=== PATIENT | male | born 1990 | race African-American/Black ===

== ENCOUNTER 2022-05-03 01:22 | Emergency (ER) | payer OTHER ==
[~2022-05-03] VITALS: Ht 139.7 cm; Wt 84.8 kg
[2022-05-03] MEDS ORDERED: PRED20 PO (04:18)
[2022-05-03] MEDS ORDERED: BENZ100A PO (04:18)
[2022-05-03] MEDS ORDERED: ALBU90OI INH (04:18)
== END 2022-05-03 04:52 | disposition home or self-care (01) ==
LOC: ER 01:22
DX: J20.9 Acute bronchitis, unspecified (principal); J06.9 Acute upper respiratory infection, unspecified
CPT/HCPCS: 71045

== ENCOUNTER 2022-11-28 07:01 | Emergency (ER) | payer OTHER ==
[~2022-11-28] VITALS: Ht 160 cm; Wt 88.5 kg
[~2022-11-28 07:01] MED LIST: ALBU90OI INH; BENZ100A PO; PRED20 PO
[2022-11-28 09:16] LABS: BASOPHILS ABSOLUTE AUTO 0.04 K/mm3 (0.00-0.23); BASOPHILS PERCENT AUTO 1 % (0-2); EOSINOPHILS PERCENT AUTO 2 % (0-6); Hematocrit 47.6 % (37.0-53.0); Hemoglobin 15.8 g/dL (13.5-17.5); IMMATURE GRAN ABSOLUTE AUTO 0.01 K/mm3 (0.00-0.10); IMMATURE GRAN PERCENT AUTO 0 % (0-1); LYMPHOCYTES ABSOLUTE AUTO 1.59 K/mm3 (0.84-5.20); LYMPHOCYTES PERCENT AUTO 32 % (21-46); MONOCYTES ABSOLUTE AUTO 0.31 K/mm3 (0.16-1.47); MONOCYTES PERCENT AUTO 6 % (4-13); Mean Corpuscular HGB 28.6 pg (26.0-34.0); Mean Corpuscular HGB Conc 33.2 g/dL (31.5-36.5); Mean Corpuscular Volume 86 fL (80-100); Mean Platelet Volume 10.9 fL (9.1-12.4); NEUTROPHILS ABSOLUTE AUTO 2.87 K/mm3 (1.96-9.15); NEUTROPHILS PERCENT AUTO 58 % (41-73); Platelet Count 214 K/mm3 (150-400); RDW Coefficient Variation 12.9 % (11.7-14.2); RDW Standard Deviation 40.8 fL (35.1-46.3); Red Blood Cell Count 5.53 M/mm3 (4.30-5.90); White Blood Cell Count 4.92 K/mm3 (4.00-11.30)
[2022-11-28 10:19] LABS: Bun/Creatinine Ratio 15.5 (12.0-20.0); Creatinine, Blood 0.84 mg/dL (0.60-1.20); Potassium, Blood 4.2 mmol/L (3.5-5.5)
[2022-11-28 10:30] VITALS: BP 129/75
== END 2022-11-28 10:41 | disposition home or self-care (01) ==
LOC: ER 07:01
PROVIDERS: Emergency Medicine
DX: R07.89 Other chest pain (principal)
CPT/HCPCS: 71045; 80048; 84484; 85025; 93005; 93010; 99285-25

== ENCOUNTER 2024-04-25 20:44 | Emergency (ER) | payer OTHER ==
[~2024-04-25] VITALS: Ht 160 cm; Wt 90.7 kg
[2024-04-25 20:52] VITALS: BP 158/95
[2024-04-26] MEDS ORDERED: Trimethoprim/Sulfamethoxazole DS Tab PO ONE (00:25)
[2024-04-26] MEDS ORDERED: SULTRIDS PO (00:25)
[2024-04-26] MEDS ORDERED: CEPH500 PO (00:25)
[2024-04-26] MEDS ORDERED: Cephalexin Monohydrate 500 MG Cap PO ONE (00:25)
== END 2024-04-26 00:56 | disposition home or self-care (01) ==
LOC: ER 20:44
DX: L03.116 Cellulitis of left lower limb (principal)
CPT/HCPCS: 93971; 99283-25; A9270

== ENCOUNTER 2025-01-16 14:25 | Emergency (ER) | payer OTHER ==
[~2025-01-16] VITALS: Ht 162.6 cm; Wt 108.9 kg
[~2025-01-16 14:25] MED LIST changes: +CEPH500 PO; +SULTRIDS PO
[2025-01-16 17:09] LABS: BASOPHILS ABSOLUTE AUTO 0.06 K/mm3 (0.00-0.23); BASOPHILS PERCENT AUTO 1 % (0-2); EOSINOPHILS ABSOLUTE AUTO 0.21 K/mm3 (0.00-0.68); EOSINOPHILS PERCENT AUTO 2 % (0-6); Hematocrit 32.6 % (37.0-53.0); Hemoglobin 10.2 g/dL (13.5-17.5); IMMATURE GRAN ABSOLUTE AUTO 0.04 K/mm3 (0.00-0.10); IMMATURE GRAN PERCENT AUTO 0 % (0-1); LYMPHOCYTES ABSOLUTE AUTO 1.57 K/mm3 (0.84-5.20); LYMPHOCYTES PERCENT AUTO 16 % (21-46); MONOCYTES ABSOLUTE AUTO 0.53 K/mm3 (0.16-1.47); MONOCYTES PERCENT AUTO 6 % (4-13); Mean Corpuscular HGB Conc 31.3 g/dL (31.5-36.5); Mean Corpuscular Volume 92 fL (80-100); NEUTROPHILS ABSOLUTE AUTO 7.17 K/mm3 (1.96-9.15); NEUTROPHILS PERCENT AUTO 75 % (41-73); NRBC ABSOLUTE 0.00 K/mm3 (0.00-0.02); NRBC Auto 0.0 /100 WBC (0.0-0.2); Platelet Count 362 K/mm3 (150-400); RDW Coefficient Variation 13.0 % (11.7-14.2); RDW Standard Deviation 43.0 fL (35.1-46.3)
[2025-01-16 17:28] LABS: Alanine Aminotransfer (ALT/SGP 34.0 U/L (12-78); Albumin, Blood 3.4 g/dL (3.4-5.0); Albumin/Globulin Ratio 0.8 (0.8-1.8); Anion Gap 7.0 mmol/L (3-11); Aspartate Aminotrans (AST/SGOT 19.0 U/L (12-37); Bilirubin, Total 0.8 mg/dL (0.1-1.0); Blood Urea Nitrogen 13.0 mg/dL (8-24); CO2, Blood 29.0 mmol/L (21-32); Calcium, Blood 8.6 mg/dL (8.5-10.1); Chloride, Blood 106.0 mmol/L (98-108); Creatinine, Blood 0.71 mg/dL (0.60-1.20); Globulin, Blood 4.1 g/dL (2.2-4.0); Glucose, Blood 91.0 mg/dL (70-99); Potassium, Blood 3.5 mmol/L (3.5-5.5); Sodium, Blood 138.0 mmol/L (136-145); Total Protein, Blood 7.5 g/dL (6.4-8.2)
[2025-01-16 18:30] VITALS: BP 116/76
[2025-01-16] MEDS ORDERED: FURO20 PO (18:38)
== END 2025-01-16 18:45 | disposition home or self-care (01) ==
LOC: ER 14:25
PROVIDERS: Emergency Medicine
DX: R60.0 Localized edema (principal); Z79.899 Other long term (current) drug therapy
CPT/HCPCS: 80053; 83880; 84484; 85025; 93005; 93010; 99283-25

== ENCOUNTER 2025-04-09 01:16 | Emergency (ER) | payer OTHER ==
[~2025-04-09] VITALS: Ht 162.6 cm; Wt 102.1 kg
[~2025-04-09 01:16] MED LIST changes: +FURO20 PO
[2025-04-09 03:27] VITALS: BP 118/62
== END 2025-04-09 03:30 | disposition home or self-care (01) ==
LOC: ER 01:16
DX: R07.89 Other chest pain (principal); Z79.2 Long term (current) use of antibiotics
CPT/HCPCS: 71046; 99283-25